=== PATIENT | male | born 1990 | race Caucasian/White ===

== ENCOUNTER 2016-03-31 09:55 | Emergency (ER) | payer OTHER ==
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
--- NOTE | 2016-03-31 11:52 | ED NURSING NOTES ---
Clinical Report - Nurses [facility] [address] [place] [address] 03/31/2016 9:56 Patient: MARICRUZ ALMARAZ TRIAGE Triage time 10:06. Acuity: LEVEL 3. Chief Complaint: REDNESS and PAIN TO LEFT EYE. DISCOMFORT and BURNING TO LEFT EYE. (cooking oil. Eye is blurry 20/200 acuity). Alert. No acute distress. VISUAL ACUITY: Visual acuity performed: left eye 20/200; right eye 20/40; both eyes 20/40. --10:12 Pearl Acevedo R.N. 10:03/31/16. BP: 118/80. HR: 74. RR: 18. O2 saturation: 100% on room air. Temp: 97.7 F. Pain level now: 5/10. Additional comments: "Feels more like an iritation " . --10:12 Pearl Acevedo R.N. 10:03/31/16. BP: 118/80. HR: 74. RR: 18. O2 saturation: 100% on room air. Temp: 97.7 F. Pain level now: 5/10. Additional comments: "Feels more like an iritation " . --10:12 Pearl Acevedo R.N. Weight: 108.8 kg stated. Height/Length: 72 inches Per Patient. BMI: 32.6. --10:05 Pearl Acevedo R.N. Medications None. --10:09 Pearl Acevedo R.N. Medication/allergy information source: the patient. --10:12 Pearl Acevedo R.N. Allergies No Known Drug Allergy. --10:10 Pearl Acevedo R.N. History Arrived by private vehicle. Historian: patient. Accompanied by friend. No primary care physician. This started last night. Onset. (10 hours ago). Mechanism- cooking oil splashed inthe eye. He has had eye discomfort, eye irritation, blurred vision and decreased vision. Treatment CHIEF CONTRACT OFFICER: Irrigation. PAST MEDICAL HX: No history of prior eye injury. He does not wear contact lenses. Immunizations: up-to-date. SURGERY HX: ( wrist, intestine polyp, ruptured.). SOCIAL HX: Never smoker. History of drug use: marijuana. Recently used drugs yesterday. No alcohol use. FALL RISK ASSESSMENT: Fall risk assessment completed. No fall risk identified. NUTRITIONAL RISK ASSESSMENT: The nutritional risk assessment revealed no deficiencies. FUNCTIONAL ASSESSMENT: Functional assessment: no impairments noted. LEARNING NEEDS ASSESSMENT: The learning needs assessment revealed no barriers. SKIN INTEGRITY ASSESSMENT: Skin integrity risk assessment completed. No skin integrity risk identified. --10:12 Pearl Acevedo R.N. PROBLEMS: Laceration. --10:10 Pearl Acevedo R.N. Interventions ID band on patient. To room. --10:12 Pearl Acevedo R.N. PHYSICAL ASSESSMENT Ambulatory to room. GENERAL / NEURO / PSYCH: Alert. Appears in pain and anxious. RESPIRATORY: Respirations not labored. CVS: Capillary refill less than 2 seconds. SKIN: Skin is warm and dry. Normal skin turgor. --10:13 Pearl Acevedo R.N. NURSING PROGRESS NOTES Head of bed elevated. Two patient identifiers checked. Call light placed in reach. Side rails up x 1. Bed placed in lowest position. Brakes of bed on. Patient ready for evaluation. --10:13 Pearl Acevedo R.N. DISPOSITION / DISCHARGE Condition at departure: improved. No learning barriers present. Discharge instructions provided and reviewed with the patient. Reviewed medication(s) side effects, precautions, dosing and course information. Prescription(s) given to the patient. Reviewed referral to an parquet floor layer's helper for followup. Patient verbalized understanding. Written instructions provided in Occitan. The patient was discharged home and accompanied by furnace repair mechanic. He left the Emergency Department ambulatory and via private vehicle. Position Classification Specialist driving. Medication list reviewed and validated. --12:13 Alma Rosa Huston R.N. 12:12 03/31/16. BP: 120/80. HR: 76. RR: 20. O2 saturation: 100%. Temp: deferred. Pain level now: 10. 10:06 03/31/16. BP: 118/80. HR: 74. RR: 18. O2 saturation: 100% on room air. Temp: 97.7 F. Pain level now: 5/10. Additional comments: "Feels more like an iritation " . --12:13 Alma Rosa uHston R.N. Locked/Released at 03/31/2016 12:13 by Alma Rosa Huston R.N.
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
--- NOTE | 2016-03-31 11:52 | ED NURSING NOTES ---
Clinical Report - Nurses [facility] [address] [place] [address] 03/31/2016 9:56 Patient: MARICRUZ ALMARAZ TRIAGE Triage time 10:06. Acuity: LEVEL 3. Chief Complaint: REDNESS and PAIN TO LEFT EYE. DISCOMFORT and BURNING TO LEFT EYE. (cooking oil. Eye is blurry 20/200 acuity). Alert. No acute distress. VISUAL ACUITY: Visual acuity performed: left eye 20/200; right eye 20/40; both eyes 20/40. --10:12 Pearl Acevedo R.N. 10:03/31/16. BP: 118/80. HR: 74. RR: 18. O2 saturation: 100% on room air. Temp: 97.7 F. Pain level now: 5/10. Additional comments: "Feels more like an iritation " . --10:12 Pearl Acevedo R.N. 10:03/31/16. BP: 118/80. HR: 74. RR: 18. O2 saturation: 100% on room air. Temp: 97.7 F. Pain level now: 5/10. Additional comments: "Feels more like an iritation " . --10:12 Pearl Acevedo R.N. Weight: 108.8 kg stated. Height/Length: 72 inches Per Patient. BMI: 32.6. --10:05 Pearl Acevedo R.N. Medications None. --10:09 Pearl Acevedo R.N. Medication/allergy information source: the patient. --10:12 Pearl Acevedo R.N. Allergies No Known Drug Allergy. --10:10 Pearl Acevedo R.N. History Arrived by private vehicle. Historian: patient. Accompanied by friend. No primary care physician. This started last night. Onset. (10 hours ago). Mechanism- cooking oil splashed inthe eye. He has had eye discomfort, eye irritation, blurred vision and decreased vision. Treatment HIV/AIDS CARE NURSE: Irrigation. PAST MEDICAL HX: No history of prior eye injury. He does not wear contact lenses. Immunizations: up-to-date. SURGERY HX: ( wrist, intestine polyp, ruptured.). SOCIAL HX: Never smoker. History of drug use: marijuana. Recently used drugs yesterday. No alcohol use. FALL RISK ASSESSMENT: Fall risk assessment completed. No fall risk identified. NUTRITIONAL RISK ASSESSMENT: The nutritional risk assessment revealed no deficiencies. FUNCTIONAL ASSESSMENT: Functional assessment: no impairments noted. LEARNING NEEDS ASSESSMENT: The learning needs assessment revealed no barriers. SKIN INTEGRITY ASSESSMENT: Skin integrity risk assessment completed. No skin integrity risk identified. --10:12 Pearl Acevedo R.N. PROBLEMS: Laceration. --10:10 Pearl Acevedo R.N. Interventions ID band on patient. To room. --10:12 Pearl Acevedo R.N. PHYSICAL ASSESSMENT Ambulatory to room. GENERAL / NEURO / PSYCH: Alert. Appears in pain and anxious. RESPIRATORY: Respirations not labored. CVS: Capillary refill less than 2 seconds. SKIN: Skin is warm and dry. Normal skin turgor. --10:13 Pearl Acevedo R.N. NURSING PROGRESS NOTES Head of bed elevated. Two patient identifiers checked. Call light placed in reach. Side rails up x 1. Bed placed in lowest position. Brakes of bed on. Patient ready for evaluation. --10:13 Pearl Acevedo R.N. DISPOSITION / DISCHARGE Condition at departure: improved. No learning barriers present. Discharge instructions provided and reviewed with the patient. Reviewed medication(s) side effects, precautions, dosing and course information. Prescription(s) given to the patient. Reviewed referral to an appeals examiner for followup. Patient verbalized understanding. Written instructions provided in Nepali. The patient was discharged home and accompanied by shoe cementer. He left the Emergency Department ambulatory and via private vehicle. Radio Presenter driving. Medication list reviewed and validated. --12:13 Alma Rosa Huston R.N. 12:12 03/31/16. BP: 120/80. HR: 76. RR: 20. O2 saturation: 100%. Temp: deferred. Pain level now: 10. 10:06 03/31/16. BP: 118/80. HR: 74. RR: 18. O2 saturation: 100% on room air. Temp: 97.7 F. Pain level now: 5/10. Additional comments: "Feels more like an iritation " . --12:13 Alma Rosa Huston R.N. Locked/Released at 03/31/2016 12:13 by Alma Rosa Huston R.N.
--- NOTE | 2016-03-31 19:10 | ED MAR SUMMARY ---
..... Medication Administration Record [facility] [address], [place] [id number] Patient: MARICRUZ ALMARAZ Visit ID: [id number] 25y, M Weight: 108.8 kg Height/Length: 72 in BMI: 32.6 ALLERGIES: No Known Drug Allergy
--- NOTE | 2016-03-31 19:10 | ED MED RECONCILIATION SUMMARY ---
Patient: MARICRUZ ALMARAZ Medication Reconciliation Report [facility] VisitID: [id number] [place] [address] 25y, M Registration Date/Time: 03/31/2016 Weight: 108.8 kg Height/Length: 72 in. BMI: 32.6 ALLERGIES: No Known Drug Allergy The patient's Home Medications are listed below: NONE. The source(s) of the original Home Medication information: patient The following Medications were given to the patient in the Emergency Department: None. The following Medications were prescribed to the patient: Lacri-Lube ophthalmic ointment (available over the counter): take according to label instructions. -- Andrés Cannon MD Erythromycin ophthalmic ointment 0.5% : Apply 1/2 inch to inner aspect of the lower lid on the affected eye every 4 hours while awake for 1 week. Dispense three and one half (3.5) gm. No refills. -- Andrés Cannon MD
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
--- NOTE | 2016-03-31 19:10 | ED MED RECONCILIATION SUMMARY ---
Patient: MARICRUZ ALMARAZ Medication Reconciliation Report [facility] VisitID: [id number] [place] [address] 25y, M Registration Date/Time: 03/31/2016 Weight: 108.8 kg Height/Length: 72 in. BMI: 32.6 ALLERGIES: No Known Drug Allergy The patient's Home Medications are listed below: NONE. The source(s) of the original Home Medication information: patient The following Medications were given to the patient in the Emergency Department: None. The following Medications were prescribed to the patient: Lacri-Lube ophthalmic ointment (available over the counter): take according to label instructions. -- Andrés Cannon MD Erythromycin ophthalmic ointment 0.5% : Apply 1/2 inch to inner aspect of the lower lid on the affected eye every 4 hours while awake for 1 week. Dispense three and one half (3.5) gm. No refills. -- Andrés Cannon MD
--- NOTE | 2016-03-31 19:10 | ED MAR SUMMARY ---
..... Medication Administration Record [facility] [address] [place], [place] [id number] Patient: MARICRUZ ALMARAZ Visit ID: [id number] 25y, M Weight: 108.8 kg Height/Length: 72 in BMI: 32.6 ALLERGIES: No Known Drug Allergy
== END 2016-03-31 12:13 | disposition home or self-care (01) ==
LOC: ED SRH 09:55
DX: T26.12XA Burn of cornea and conjunctival sac, left eye, initial encounter (principal); T20.26XA Burn of second degree of forehead and cheek, initial encounter; X10.2XXA Contact with fats and cooking oils, initial encounter; Y93.G1 Activity, food preparation and clean up; Y92.9 Unspecified place or not applicable; Y99.0 Civilian activity done for income or pay